=== PATIENT | male | born 1950 | race Caucasian/White ===

== ENCOUNTER 2021-11-30 08:34 | Day surgery (SDC) | payer MEDICARE, OTHER ==
[2021-11-23 14:58] LABS: BASOPHILS # (AUTO) 0.1 X10'3 (0-0.2); BASOPHILS % (AUTO) 0.6 % (0-1); EOSINOPHILS # (AUTO) 0.7 X10'3 (0-0.9); EOSINOPHILS % (AUTO) 6.3 % (0-6); HEMATOCRIT 44.5 % (42.0-52.0); HEMOGLOBIN 15.3 g/dl (14.0-17.9); LYMPHOCYTES # (AUTO) 2.1 X10'3 (1.1-4.8); LYMPHOCYTES % (AUTO) 18.8 % (21-51); MEAN CORPUSCULAR HEMOGLOBIN 29.5 PG (27.0-31.0); MEAN CORPUSCULAR HGB CONC 34.3 g/dL (33.0-36.5); MEAN PLATELET VOLUME 9.2 FL (7.4-10.4); MONOCYTES % (AUTO) 9.1 % (2-12); NEUTROPHILS # (AUTO) 7.1 X10'3 (1.8-7.7); NEUTROPHILS % (AUTO) 65.2 % (42-75); PLATELET COUNT 297 X10'3 (140-440); RED BLOOD COUNT 5.18 X10'6 (4.70-6.10); RED CELL DISTRIBUTION WIDTH 13.7 % (11.5-14.5)
[2021-11-23 15:11] LABS: APTT 29 SECONDS (22-32)
[2021-11-23 15:29] LABS: ALANINE AMINOTRANSFERASE 40 U/L (12-78); ALBUMIN 3.9 G/DL (3.4-5.0); ALBUMIN/GLOBULIN RATIO 1.3 (1.1-1.5); ALKALINE PHOSPHATASE 122 IU/L (46-116); ANION GAP 5 (8-16); ASPARTATE AMINO TRANSFERASE 20 U/L (10-37); BILIRUBIN,TOTAL 0.4 MG/DL (0.1-1.0); BLOOD UREA NITROGEN 19 MG/DL (7-18); BUN/CREATININE RATIO 20.4 (5.4-32.0); CALCIUM 9.1 MG/DL (8.5-10.1); CHLORIDE 104 MMOL/L (99-107); CREATININE 0.93 MG/DL (0.60-1.10); GLUCOSE 105 MG/DL (70-104); POTASSIUM 4.3 MMOL/L (3.5-5.1); SODIUM 139 MMOL/L (135-145); TOTAL CARBON DIOXIDE 29.6 MMOL/L (24-32); TOTAL PROTEIN 6.8 G/DL (6.4-8.2); eGFR 80 ML/MIN
[2021-11-30] VITALS (12 sets, daily range): BP systolic 119–149; BP diastolic 56–84
[~2021-11-30] VITALS: Ht 175.3 cm; Wt 91.6 kg
[2021-11-30] MEDS ORDERED: diphenhydrAMINE 25mg capsule PO PRN (08:45)
[2021-11-30] MEDS ORDERED: normal saline 1,000 ML IV SCH (08:45)
[2021-11-30] MEDS ORDERED: nitroGLYCERIN 0.4mg SUBLingual tab SL PRN (08:45)
[2021-11-30] MEDS ORDERED: LORazepam 0.5 MG tablet PO PRN (08:45)
[2021-11-30] MEDS ORDERED: CARI-431 PO (09:00)
[2021-11-30] MEDS ORDERED: ATOR-2 PO (09:00)
[2021-11-30] MEDS ORDERED: Zinc (09:04)
[2021-11-30] MEDS ORDERED: ASPI-1071 PO (09:04)
[2021-11-30] MEDS ORDERED: Vitamin B12 (09:04)
[2021-11-30] MEDS ORDERED: Vitamin D3 (09:04)
[2021-11-30] MEDS ORDERED: LIDOcaine 1% (10mg/ml)w/preservative inj. 20ml MDV ONE (10:31)
[2021-11-30] MEDS ORDERED: iohexol 350MG/ML 100ml bottle IV ONE (10:31)
[2021-11-30] MEDS ORDERED: midazolam 1 mg/ML 2ml injection ONE (10:31)
[2021-11-30] MEDS ORDERED: fentaNYL/PF 50MCG/1 ML 2ML syringe ONE (10:31)
[2021-11-30] MEDS ORDERED: iohexol 350 MG/ML 50ML vial IV ONE (10:31)
[2021-11-30] MEDS ORDERED: HYDROcodone/acetaminophen 5mg/325mg tablet PO PRN (12:55)
[2021-11-30] MEDS ORDERED: OXAZEpam 15mg capsule PO PRN (12:55)
[2021-11-30] MEDS ORDERED: ondansetron/PF 4mg/2ml inj IV PRN (12:55)
[2021-11-30] MEDS ORDERED: normal saline 1000ml 1,000 ML IV ONE (12:55)
[2021-11-30] MEDS ORDERED: HYDROcodone/acetaminophen 10/325mg tab PO PRN (12:55)
[2021-11-30] MEDS ORDERED: proCHLORperazine 10 MG/2 ml inj IV PRN (12:55)
== END 2021-11-30 18:00 | disposition home or self-care (01) ==
LOC: SSTAY O 08:34
PROVIDERS: ATTEND Internal Medicine Cardiovascular Disease
DX: R94.39 Abnormal result of other cardiovascular function study (principal); R07.89 Other chest pain; I25.10 Atherosclerotic heart disease of native coronary artery without angina pectoris; E78.5 Hyperlipidemia, unspecified; I45.10 Unspecified right bundle-branch block; I10 Essential (primary) hypertension; J44.9 Chronic obstructive pulmonary disease, unspecified; Z98.890 Other specified postprocedural states; Z79.899 Other long term (current) drug therapy
CPT/HCPCS: 36415; 71046; 80053; 83880; 84484; 85025; 85610; 85730; 93005; 93458; 99152; C1760; C1769; J1644; J2250; J3010; J3490; J7030; Q0163; Q9967; 99153; A4620; A6258